=== PATIENT | female | born 1990 | race Caucasian/White ===

== ENCOUNTER 2015-09-14 12:29 | Inpatient (IN) | payer OTHER ==
[2016-09-08] MEDS ORDERED: PEPCID IV PRN (19:36)
[2016-09-08] MEDS ORDERED: TYLENOL PO PRN (19:36)
[2016-09-08] MEDS ORDERED: ZOFRAN IV PRN (19:36)
[2016-09-08] MEDS ORDERED: PEPCID PO PRN (19:36)
[2016-09-08] MEDS ORDERED: BRETHINE SUBQ PRN (19:36)
[2016-09-08] MEDS ORDERED: STADOL IV PRN ×2 (19:36)
[2016-09-08] MEDS ORDERED: KEFZOL 1 GM/D5W 50 ML IV PRN (19:36)
[2016-09-08] MEDS ORDERED: AMBIEN PO PRN (19:36)
[2016-09-08] MEDS ORDERED: CYTOTEC PO ONE (20:00)
[2016-09-08] MEDS: LR 1,000 ML IV SCH (21:09)
[2016-09-08] MEDS: VANCOMYCIN 1 GM/NS 250 ML IV SCH (21:10)
[2016-09-09 00:42] LABS: MANUAL DIFF NEEDED? NO
[2016-09-09 00:54] LABS: BASO% 0.1 % (0.0-0.8); EOS# 0.07 X1000 (0.0-0.7); EOS% 0.5 % (0.0-10.0); HEMATOCRIT 32.3 % (37.0-47.0); HEMOGLOBIN 10.3 g/dL (12.0-16.0); IMM GRAN# 0.04 X1000 (0.0-0.04); IMM GRAN% 0.3 % (0.0-0.5); LYMPH# 1.83 X1000 (1.2-3.4); LYMPH% 14.4 % (20.5-51.1); MCH 27.8 PG (27-31); MCHC 31.9 g/dL (33-37); MCV 87.3 FL (81-99); MONO# 0.78 X1000 (0.11-0.59); MONO% 6.1 % (1.7-9.3); MPV 10.5 FL (7.4-10.4); NEUT% 78.6 % (42.2-75.2); PLT 267 X1000 (130-400)
[2016-09-09 01:43] LABS: URINE SOURCE VOIDED
[2016-09-09] MEDS: CYTOTEC PO SCH ×2 (01:48→08:25)
[2016-09-09 01:51] LABS: BILIRUBIN URINE NEGATIVE (NEGATIVE); BLOOD URINE 3+ (NEGATIVE); CLARITY VERY CLOUDY (CLEAR); COLOR YELLOW; GLUCOSE URINE NEGATIVE (NEGATIVE); LEUKOCYTES URINE 2+ (NEGATIVE); NITRITE URINE NEGATIVE (NEGATIVE); PROTEIN URINE 1+(30 mg/dL) mg/dL (NEGATIVE); SP GRAVITY URINE 1.015; UROBILINOGEN URINE NORMAL
[2016-09-09] MEDS: STADOL IV PRN ×2 (04:59→08:18)
[2016-09-09] MEDS ORDERED: PITOCIN 30 UNITS/LR 500 ML IV SCH (07:00)
[2016-09-09] MEDS ORDERED: FENTANYL ONE (08:15)
[2016-09-09] MEDS ORDERED: XYLOCAINE-MPF 1% 5 ML ONE (08:15)
[2016-09-09] MEDS: LR 1,000 ML IV SCH ×2 (08:40→11:28)
[2016-09-09] MEDS: VANCOMYCIN 1 GM/NS 250 ML IV SCH (08:54)
[2016-09-09] MEDS: NAROPIN 0.2% EPIDURAL PRN ×2 (10:01→18:12)
[2016-09-09] MEDS ORDERED: MINERAL OIL ONE (18:36)
[2016-09-09] MEDS ORDERED: XYLOCAINE-MPF 1% ONE (18:36)
[2016-09-09] MEDS ORDERED: M-M-R II VACCINE SUBQ ONE (19:41)
[2016-09-09] MEDS ORDERED: PITOCIN 30 UNITS/LR 500 ML IV ONE (19:41)
[2016-09-09] MEDS ORDERED: AMBIEN PO PRN (19:41)
[2016-09-09] MEDS ORDERED: HYDROXYZINE PO PRN (19:41)
[2016-09-09] MEDS ORDERED: MINERAL OIL MISC PRN (19:41)
[2016-09-09] MEDS ORDERED: CYTOTEC PO PRN (19:41)
[2016-09-09] MEDS ORDERED: PERCOCET-5 PO PRN (19:41)
[2016-09-09] MEDS ORDERED: NORCO-5 PO PRN (19:41)
[2016-09-09] MEDS ORDERED: BENADRYL IV PRN (19:41)
[2016-09-09] MEDS ORDERED: HYDROXYZINE IM PRN (19:41)
[2016-09-09] MEDS ORDERED: XYLOCAINE-MPF 1% INJ PRN (19:41)
[2016-09-09] MEDS ORDERED: PITOCIN IM PRN (19:41)
[2016-09-09] MEDS ORDERED: BOOSTRIX VACCINE IM ONE (19:41)
[2016-09-09] MEDS ORDERED: NORCO-10 PO PRN (19:41)
[2016-09-09] MEDS ORDERED: BENADRYL PO PRN (19:41)
[2016-09-09] MEDS ORDERED: PITOCIN 20 UNITS/LR 1,000 ML IV SCH (19:45)
[2016-09-09] MEDS: PERCOCET-10 PO PRN ×2 (19:56→23:33)
--- NOTE | 2016-09-09 20:58 | OPERATIVE NOTE ---
PROCEDURE DATE: 09/09/2016 DELIVERING PHYSICIAN: Dr. Sanchez. TYPE DELIVERY: Spontaneous controlled vaginal delivery. ANESTHESIA: Epidural. FINDINGS: At 1921 an 8-pound 15-ounce male was delivered in occiput anterior presentation. Apgars have not been assigned at this time. SUMMARY: Gretchen Beckford is a 26-year-old 3, para 0-2-0-0 at 39-1/2 weeks gestation. Her blood type is O positive. Rubella nonimmune. Hepatitis B surface antigen, HIV are negative. Group B strep was positive. has been uncomplicated. Gretchen was brought in last night for Cytotec for elective induction of labor. This morning she was 2 cm. Membranes ruptured revealing copious amounts of clear fluid. Due to penicillin allergy she was placed on vancomycin, received 2 doses for group B strep prophylaxis. She progressed to labor without complications. She became complete and began pushing. She soon crowned. At that point she was placed in the dorsal lithotomy position. Perineum was prepped, draped in usual fashion. Due to the expected size of infant a midline episiotomy was performed and spontaneous controlled vaginal delivery occurred. Once the 's head was delivered the oropharynx was bulb suctioned. The shoulders were easily delivered. The cord was clamped, cut. The infant was handed to nurses further care and evaluation. Cord blood was obtained. Placenta was spontaneously delivered and was intact. There were no cervical or vaginal lacerations and the second-degree midline episiotomy was repaired in layers using 2-0 Vicryl suture. Blood loss approximately 300 mL. Patient remained in the LDR recovering without difficulty.
[2016-09-09] MEDS: PERICOLACE PO SCH (21:34)
[2016-09-09] MEDS: PERI MEDS (DERMOPLAST/NUPERCAINAL/TUCKS) MISC PRN (22:26)
[2016-09-09] MEDS: MOTRIN PO PRN (23:33)
[2016-09-10] MEDS: PERCOCET-10 PO PRN ×5 (02:48→21:55)
[2016-09-10 05:59] LABS: HEMATOCRIT 27.5 % (37.0-47.0); HEMOGLOBIN 8.8 g/dL (12.0-16.0); MCH 28.1 PG (27-31); MCV 87.9 FL (81-99); MPV 10.3 FL (7.4-10.4); RBC 3.13 XMIL (4.2-5.4)
[2016-09-10] MEDS: PRECARE PO SCH (09:37)
[2016-09-10] MEDS: MOTRIN PO PRN ×2 (09:37→21:55)
[2016-09-10] MEDS: PERICOLACE PO SCH (21:55)
[2016-09-11] MEDS ORDERED: PNEUMOVAX 23 IM ONE (08:30)
[2016-09-11] MEDS: PRECARE PO SCH (09:10)
[2016-09-11] MEDS: PERI MEDS (DERMOPLAST/NUPERCAINAL/TUCKS) MISC PRN (09:53)
[2016-09-11] MEDS: MOTRIN PO PRN (12:47)
[2016-09-12] MEDS: MOTRIN PO PRN (06:32)
[2016-09-12 06:39] VITALS: BP 111/69
[2016-09-12] MEDS: PRECARE PO SCH (09:47)
== END 2016-09-12 10:30 | disposition home or self-care (01) | DRG 775 ==
LOC: P.LD 09-08 19:23
PROVIDERS: ADMIT Obstetrics & Gynecology; ATTEND Obstetrics & Gynecology
PROC: 10E0XZZ Delivery of Products of Conception, External Approach (ICD-10-PCS; 2016-09-09)
PROC: 10907ZC Drainage of Amniotic Fluid, Therapeutic from Products of Conception, Via Natural or Artificial Opening (ICD-10-PCS; 2016-09-09)
PROC: 3E033VJ Introduction of Other Hormone into Peripheral Vein, Percutaneous Approach (ICD-10-PCS; 2016-09-09)
PROC: 0W8NXZZ Division of Female Perineum, External Approach (ICD-10-PCS; principal; 2016-09-09 07:00)
DX: O99.824 Streptococcus B carrier state complicating childbirth (principal); Z23 Encounter for immunization; Z37.0 Single live birth; Z3A.39 39 weeks gestation of pregnancy
CPT/HCPCS: 81003; 85025; 85027; 86592; 90707; 90732; J0595; J2590; J2795; J3010; J3370; J7120